=== PATIENT | male | born 1990 | race Caucasian/White ===

== ENCOUNTER 2018-12-26 03:23 | Emergency (ER) | payer SELFPAY ==
[~2018-12-26] VITALS: Ht 165.1 cm; Wt 56.8 kg
[2018-12-26 03:59] VITALS: BP 149/95
[2018-12-26] MEDS ORDERED: SODIUM CHLORIDE 0.9% 1,000 ML IV ONE (04:21)
[2018-12-26 05:02] LABS: CHLORIDE 110 mEq/L (98-107)
== END 2018-12-26 05:46 | disposition home or self-care (01) ==
LOC: ER 03:23
DX: F15.10 Other stimulant abuse, uncomplicated (principal); J45.909 Unspecified asthma, uncomplicated; F17.200 Nicotine dependence, unspecified, uncomplicated; Z98.890 Other specified postprocedural states
CPT/HCPCS: 36415; 80048; 99283; J7030

== ENCOUNTER 2021-09-04 18:14 | Emergency (ER) | payer MEDICAID ==
[~2021-09-04] VITALS: Ht 177.8 cm; Wt 75.0 kg
[2021-09-04] MEDS ORDERED: PREDNISONE 20MG TABLET PO STA (20:18)
[2021-09-04] MEDS ORDERED: P50 MT (20:20)
[2021-09-04] MEDS ORDERED: ALBU6.7H9 INH (20:20)
[2021-09-04 20:43] VITALS: BP 110/79
== END 2021-09-04 20:49 | disposition home or self-care (01) ==
LOC: ER 18:14
DX: J45.901 Unspecified asthma with (acute) exacerbation (principal); F15.10 Other stimulant abuse, uncomplicated; F17.210 Nicotine dependence, cigarettes, uncomplicated; Z71.6 Tobacco abuse counseling
CPT/HCPCS: 93005; 99283; 99406; J7512